=== PATIENT | female | born 1990 | race Caucasian/White ===

== ENCOUNTER 2018-08-20 01:13 | Emergency (ER) | payer OTHER ==
[~2018-08-20] VITALS: Ht 165.1 cm; Wt 68.2 kg
[2018-08-20 02:20] LABS: INFLUENZA A AMPLIFICATION POSITIVE (NEGATIVE); INFLUENZA B AMPLIFICATION NEGATIVE (NEGATIVE)
[2018-08-20] MEDS ORDERED: IBUPROFEN 800 MG TAB As Ordered ONE (02:22)
[2018-08-20] MEDS ORDERED: IBUPROFEN 800 MG TAB PO ONE (02:30)
[2018-08-20] MEDS ORDERED: OSELTAMIVIR PHOSPHATE 75 MG CAP (TAMIFLU) PO ONE (02:45)
[2018-08-20] MEDS ORDERED: OSEL75CA PO (02:46)
[2018-08-20 03:25] VITALS: BP 118/64
== END 2018-08-20 03:27 | disposition home or self-care (01) ==
LOC: M ED 01:13
DX: J09.X9 Influenza due to identified novel influenza A virus with other manifestations (principal)